=== PATIENT | female | born 1980 | race Caucasian/White ===

== ENCOUNTER 2020-08-25 03:33 | Outpatient (CLI) | payer OTHER, SELFPAY ==
--- NOTE | 2020-08-25 | DI.MAMMO_ITS ---
EXAM: MAMMO SCREENING CLINICAL HISTORY: [id number],SCREENING, BASELINE,FAMILY H/O BREAST CA TECHNIQUE: Mammograms were interpreted according to the usual protocol including computer analysis w [employer] CAD system, tomosynthesis and C-view imaging. COMPARISON: None. Baseline exam. FINDINGS: The breasts are composed of heterogeneously dense fibroglandular densities, Breast Density category C . No suspicious masses or suspicious microcalcifications are seen. No skin thickening or abnormal axillary lymph nodes are seen. There has been no significant change from prior exams. IMPRESSION: BI-RADS Category 1, Negative mammogram. Yearly screening mammography is recommended. Breast Density Category C, heterogeneously Dense. The mammogram demonstrates the patient's breast tissue is dense. Dense breast tissue is very common a nd is not abnormal but dense breast tissue can make it harder to find cancer on a mammogram. Also, de nse breast tissue may increase breast cancer risk. This information about the result of the mammogram report was provided to the patient to raise their awareness. Use this report when you speak with the patient about their risks for breast cancer, which includes their family history. At that time, you may recommend additional screening tests (Ultrasound or MRI) as they might be useful based on their r isk. A negative radiographic report should not delay biopsy if a dominant or clinically suspicious mass is present. Up to ten percent of cancers are not identified on mammography. A negative report may reinforce clinical impression. Adenosis and dense breasts may obscure an underlying neoplasm. False positive reports average 6 to 10%.
== END 2020-08-25 03:53 ==
PROVIDERS: Visit Provider Internal Medicine
DX: Z12.31 Encounter for screening mammogram for malignant neoplasm of breast (principal); Z80.3 Family history of malignant neoplasm of breast
CPT/HCPCS: 77063; 77067

== ENCOUNTER 2020-11-23 06:00 | Emergency (ER) | payer OTHER, SELFPAY ==
[2020-11-23 06:05] VITALS: BP 107/72; PULSE 70; RESP 20; TEMP 36.9; O2SAT 94
--- NOTE | 2020-11-23 06:08 | ED.GENADUL_ITS ---
Discharge Plan Disposition Patient Disposition: HOME Condition: Good Discharge Details Clinical Impression: Arm pain, right Primary Care Provider: None,None ED Provider: Gerry Farah Home Meds and New Rx's Prescriptions: No Action No Known Home Meds RF: 0 Discharge Instructions Additional Instructions: This may be related to carpal tunnel though exam is not completely consistent. Recommend course of nonsteroidal like Aleve on a regular basis for the next 5 to 7 days. Splinting for comfort and follow-up with primary care for reevaluation. Return to ED if you develop chest pain, shortness of breath, neurologic changes. Referrals: Primary Care Provider [Outside] Medical Decision Making Patient presents with complaint of worsening, intermittent, shooting right arm pain. Arm appears normal and is neurovascularly intact with no tenderness. Pain is mostly in the right forearm volar aspect. Tinel's sign negative and Phalen sign equivocal with reproduction of pain but no neurologic symptoms. Still seems possible that this is carpal tunnel related. She has not really not tried anything at this point. Recommend 5 to 7-day course of nonsteroidals and wrist splinting with follow-up with her primary care next. Return to ED if problems. HPI General Mode of arrival: ambulatory . Date/Time Provider Initiated Documentation: 11/23/20 06:07 . Limitations to Documentation: no limitations . Information obtained by: patient and RN notes reviewed . HPI Narrative: Patient presents to ED with right arm pain. She reports that it is intermittent denies any injury. It has been present for 2 weeks but getting worse. She gets shooting pain from her wrist up to her elbow depending on the position her arm is in. She will sometimes have pain all the way up into the upper part of the arm. She denies any discrete numbness or tingling. She denies weakness. She is right-hand dominant. She has tried Aleve once. She has not contacted primary care. She denies chest pain, shortness of breath, neck pain, back pain. Related Data Home Medications Medication Instructions Recorded Confirmed Unknown [No Known Home Meds] 11/23/20 11/23/20 Allergies Allergy/AdvReac Type Severity Reaction Status Date / Time acetaminophen [From Percocet] Allergy Unverified 11/23/20 06:21 oxycodone [From Percocet] Allergy Unverified 11/23/20 06:22 Review of Systems Narrative: As documented in HPI otherwise negative as below. Const: no fever, chills, weakness Resp: no cough, SOB, pleuritic pain CV: no CP, diaphoresis, edema, syncope GI: no abdominal pain, nausea, vomiting, diarrhea Neuro: no headache, numbness, focal weakness, confusion PFSH Medical History No significant past medical history Surgical History H/O laparoscopy Social History Smoking/Tobacco Use Status: Current every day Smoking risk assessment performed?: Yes Alcohol Intake: never Drug use: Never Do you feel safe at home: Yes Do you feel safe in your relationship?: Yes Exam Narrative Exam Narrative: Const: WDWN female in NAD. HEENT: NC/AT. Normal facial exam. Eyes: Normal conjunctiva and sclera. Neck: Supple. Trachea midline. Lungs: Normal respiratory effort. Cor: Good radial pulses. Neuro: A+O x 3. Normal speech, mentation, gait. Cranial nerves II - XII grossly intact. No gross motor or sensory deficit. Ext: No UE tenderness or swelling. Normal radial pulses. Normal strength. Normal sensation. Negative Tinel's. Equivocal Phalen's with pain but no numbness. Skin: Warm and dry without rash.
== END 2020-11-23 06:36 | disposition home or self-care (01) ==
LOC: ER 06:38
PROVIDERS: Emergency Provider Emergency Medicine
DX: M79.601 Pain in right arm (principal)
CPT/HCPCS: 29125; 99283

== ENCOUNTER 2021-12-06 06:26 | Emergency (ER) | payer OTHER, SELFPAY ==
[2021-12-06 06:30] VITALS: BP 122/64; PULSE 87; RESP 14; TEMP 36.6; O2SAT 99
--- NOTE | 2021-12-06 06:30 | DI.RAD_ITS ---
Exam(s) XR ANKLE RT COMPLETE EXAM: XR ANKLE RT COMPLETE CLINICAL HISTORY: ankle sprain, both medial and lateral pain/swellin. TECHNIQUE: 2D digital imaging was performed. COMPARISON: No exams were available for comparison FINDINGS: 3 views There is soft tissue swelling. No evidence of fracture nor widening of the mortise. Talar dome unre markable. No radiopaque foreign body. No osseous tarsal coalition. IMPRESSION: Soft tissue swelling both sides of the ankle. No fractures. No radiographic evidence of osteomyelit is. DATA REPOSITORY: RADIATION DOSE DELIVERED:
--- NOTE | 2021-12-06 06:51 | W.ED.GENAD ---
Discharge Plan Disposition Patient Disposition: HOME Condition: Good Discharge Details Clinical Impression: Right ankle sprain [facility] Home Meds and New Rx's Prescriptions: Continued methocarbamol 500 mg Tablet 500 mg PO TID 0RF topiramate 25 mg Tablet 25 mg PO BID 0RF naproxen 500 mg Tablet 500 - 1,000 mg PO BID [id number] Discharge Instructions Instructions: Ankle Sprain (ED) Additional Instructions: At this time your x-ray shows no evidence of fracture. You have likely sprained some of the ligaments in your ankle causing the pain. Please use the walking boot to help with pain and give additional support for the ankle. Please take Tylenol and Motrin as needed for pain. Please ice your ankle throughout the day, and keep it elevated as often as possible. If you have continued pain over the next 1 to 2 weeks you may require further evaluation by an internet network specialist. If you notice any worsening of your symptoms, or any new symptoms such as vomiting, diarrhea, fever, chills, shortness of breath, chest pain, numbness, weakness, or fainting , please return immediately to the emergency department for reevaluation. Please follow up with your primary care provider as soon as possible for reassessment and reevaluation. As always, it was a pleasure participating in your medical care today. Discharge Data Discharge Date/Time-TO BE ENTERED AT DEPARTURE: 12/06/21 07:07 Medical Decision Making 41-year-old female presents today for evaluation of right ankle pain. Patient states that 1 week ago she slipped on the snow and twisted her right ankle. She does not recall the direction of when. Since then she has been walking on it for the last week. She has been taking NSAIDs and her regular methocarbamol without any significant improvement of her symptoms. She denies any pain in her bowen. She denies any numbness or tingling. No other injuries. She denies weakness. Pain is made worse with ambulation, improved with rest and NSAIDs. No other complaints at this time. No other modifying factors. Physical exam demonstrates minimal swelling over the medial lateral aspects of the right ankle mild tenderness over the medial lateral malleolus. No evidence of significant weakness or laxity. Normal strength for all movements of the foot. Suspect mild ligamentous injury. Fracture less likely. We will get an x-ray out of an abundance of precaution, monitor closely and reassess. HPI General Date/Time Provider Initiated Documentation: 12/06/21 06:27. HPI Narrative: 41-year-old female presents today for evaluation of right ankle pain. Patient states that 1 week ago she slipped on the snow and twisted her right ankle. She does not recall the direction of when. Since then she has been walking on it for the last week. She has been taking NSAIDs and her regular methocarbamol without any significant improvement of her symptoms. She denies any pain in her bowen. She denies any numbness or tingling. No other injuries. She denies weakness. Pain is made worse with ambulation, improved with rest and NSAIDs. No other complaints at this time. No other modifying factors. Related Data Home Medications Medication Instructions Recorded Confirmed methocarbamol 500 mg tablet 500 mg PO TID 12/06/21 12/06/21 naproxen 500 mg tablet 500 - 1,000 mg PO BID PRN 12/06/21 12/06/21 topiramate 25 mg tablet 25 mg PO BID 12/06/21 12/06/21 Allergies Allergy/AdvReac Type Severity Reaction Status Date / Time acetaminophen [From Percocet] Allergy Unverified 12/06/21 06:34 oxycodone [From Percocet] Allergy Unverified 12/06/21 06:34 General Stated Complaint: Orthopedic BERYL: 4 Review of Systems All systems reviewed & are unremarkable except as noted in HPI and below PFSH All Active Problems (Updated 12/06/21 @ 06:54 by Jose Neil DO) Right ankle sprain (Acute) H/O laparoscopy (Chronic) Arm pain, right (Acute) Medical History No significant past medical history Social History Smoking/Tobacco Use Status: Current every day Smoking risk assessment performed?: Yes Alcohol Intake: never Drug use: Never Substance use type: does not use Do you feel safe at home: Yes Do you feel safe in your relationship?: Yes Exam Narrative Exam Narrative: 1.Const: Well-nourished, Well-developed, appearing stated age 2.Eyes: PERRL, no conjunctival injection, and symmetrical lids. 3.ENT: Atraumatic external nose and ears. Moist MM. Neck: Symmetric, trachea midline, No thyromegaly. 4.CVS: +S1/S2, No murmurs or gallops. Peripheral pulses 2+ and equal in all extremities. Brisk capillary refill in all extremities. 5.RESP: Unlabored respiratory effort. Clear to auscultation bilaterally. No wheezes rales or rhonchi 6.GI: Soft, Nontender/Nondistended, No hepatosplenomegaly. No guarding or rebound. 7.MSK: Normocephalic/Atraumatic, Extremities w/o deformity. No cyanosis or clubbing, Normal movement of all extremities Right ankle demonstrates minimal medial and lateral swelling. No redness or warmth. Patient demonstrates good plantar and dorsiflexion, and normal strength for inversion and eversion. However pain seems to be made worse with both inversion and eversion. Sensation intact. Dorsalis pedis and posterior tibial pulse +2 bilaterally. Mild tenderness over both the medial malleolus and lateral malleolus. No tenderness over the metatarsals or phalanges. 8.Skin: Warm, Dry. No rashes or lesions. 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 Sensation grossly intact, no focal neurologic deficits. 10.Psych: (AAO) x3. Appropriate mood and affect Course Vital Signs Vital signs: Vital Signs Temperature 36.6 C 12/06/21 06:30 Pulse 87 12/06/21 06:30 Respiratory Rate 14 12/06/21 06:30 Blood Pressure 122/64 12/06/21 06:30 Pulse Oximetry 99 12/06/21 06:30 Temperature 36.6 C 12/06/21 06:30 Temperature Source Temporal Artery Scan 12/06/21 06:30 Pulse 87 12/06/21 06:30 Respiratory Rate 14 12/06/21 06:30 Respiratory Effort 12/06/21 06:36 Blood Pressure 122/64 12/06/21 06:30 Blood Pressure Position Sitting 12/06/21 06:30 Pulse Oximetry 99 12/06/21 06:30 Oxygen Delivery Method Room Air 12/06/21 06:30 Oxygen Flow Rate 0 12/06/21 06:30 Pain Level 8 12/06/21 06:36
--- NOTE | 2021-12-06 08:13 | DI.VRAD_ITS ---
PROCEDURE INFORMATION: Exam: XR Right Ankle Exam date and time: 12/06/2021 6:33 AM Age: 41 years old Clinical indication: Injury or trauma; Sprain or strain; Ankle; Right; Injury date: 12/06/21; Injury details: Fall on ice TECHNIQUE: Imaging protocol: XR Right ankle. Views: 3 or more views. COMPARISON: No relevant prior studies available. FINDINGS: Bones/joints: No fractures are identified. Alignment is anatomic. The ankle mortise is intact. Joint spaces are maintained. Soft tissues: There is circumferential soft tissue swelling about the ankle, lateral greater than medial. IMPRESSION: No fracture or malalignment in the right ankle. Circumferential soft tissue swelling, lateral greater than medial. Dictated and Authenticated by: Sofya Mason MD. Ordering:JULIANO Garcia MD
== END 2021-12-06 07:07 | disposition home or self-care (01) ==
PROVIDERS: Emergency Provider Student in an Organized Health Care Education/Training Program
DX: S93.491A Sprain of other ligament of right ankle, initial encounter (principal); W00.0XXA Fall on same level due to ice and snow, initial encounter
CPT/HCPCS: 29515; 99283; 73610

== ENCOUNTER 2025-01-24 05:44 | Emergency (ER) | payer OTHER, SELFPAY ==
[2025-01-24 05:50] VITALS: BP 128/90; PULSE 88; RESP 16; TEMP 36.3; O2SAT 96
--- NOTE | 2025-01-24 06:44 | ED.GENADUL_ITS ---
Discharge Plan Disposition Patient Disposition: Home Condition: Good Discharge Details Clinical Impression: Abscess of face Primary Care Provider: [facility] ED Provider: Jose Neil Home Meds and New Rx's Prescriptions: New clindamycin HCl 150 mg capsule 450 mg PO Q6H 7 Days Qty: 84 0RF No Action methocarbamol 500 mg Tablet 500 mg PO TID topiramate 25 mg Tablet 25 mg PO BID naproxen 500 mg Tablet 500 - 1,000 mg PO BID PRN Discharge Instructions Instructions: Abscess Incision and Drainage Additional Instructions: At this time you had an abscess over your left brow that was incised and drained. A small wick was placed in it to help continued the drainage. Thankfully there was no evidence of cellulitis of the septum or the inner parts of your eye. Please take the antibiotic as directed. The wick should fall out in the next few days. Please follow-up closely for wound recheck in the next 48 to 72 hours. You can do that here in the emergency department or at the [place]. A prescription for your antibiotic has been sent to your pharmacy. Please take this as prescribed. If you notice any worsening of your symptoms, or any new symptoms such as pain on the eyelid itself, pain with movement of your eyeball, vomiting, diarrhea, fever, chills, shortness of breath, chest pain, numbness, weakness, or fainting , please return immediately to the emergency department for reevaluation. Please follow up with your primary care provider as soon as possible for reassessment and reevaluation. As always, it was a pleasure participating in your medical care today. Referrals: [facility] [Outside] HPI General Date/Time Provider Initiated Documentation: 01/24/25 05:59 . HPI Narrative: This is a very pleasant 44-year-old female who is a [place] patient, with no significant past medical history otherwise, who presents today for evaluation of swelling over the left eyebrow. Patient states that for the last 2 weeks she has had what she thought was mild ingrown hair, it has been getting bigger and bigger, and over the last few days it has become red tender and mildly painful. She states that she had something like this a year or 2 ago, and it went away on its own. She denies fever or chills. She denies any pain with movement of her eyeball. She denies any pain for the eyelid itself. No other complaints at this time. No other modifying factors. Related Data Home Medications ?Medication ?Instructions ?Recorded ?Confirmed methocarbamol 500 mg tablet 500 mg PO TID 12/06/21 01/24/25 naproxen 500 mg tablet 500 - 1,000 mg PO BID PRN 12/06/21 01/24/25 topiramate 25 mg tablet 25 mg PO BID 12/06/21 01/24/25 clindamycin HCl 150 mg capsule 450 mg (3 x 150 mg) PO Q6H 7 days 01/24/25 #84 caps Previous Rx's ?Medication ?Instructions ?Recorded clindamycin HCl 150 mg capsule 450 mg (3 x 150 mg) PO Q6H 7 days 01/24/25 #84 caps Allergies Allergy/AdvReac Type Severity Reaction Status Date / Time acetaminophen (From Percocet) AdvReac Intermediate Nausea Unverified 01/24/25 05:56 oxycodone (From Percocet) AdvReac Intermediate Nausea Unverified 01/24/25 05:56 General Stated Complaint: Cellulitis BERYL: 4 Exam Narrative Exam Narrative: 1.Const: Well-nourished, Well-developed, appearing stated age 2.Eyes: PERRL, no conjunctival injection. Patient's left eyebrow just inferiorly to it demonstrates a large abscess roughly 2.5 cm x 2.5 cm, it is fluctuant, mildly tender. No active drainage. Inferior to this the lid of the left eye is notably unscathed otherwise. No tenderness at the tarsal plate, no swelling around the eyeball, no proptosis. No inflammation or swelling of the lower lid. When the patient moves the eyeball in every direction there is no evidence of limitation or pain. No visual change. 3.ENT: Atraumatic external nose and ears. Moist MM. Neck: Symmetric, trachea midline, No thyromegaly. 4.CVS: +S1/S2, Peripheral pulses 2+ and equal in all extremities. Brisk capillary refill in all extremities. 5.RESP: Unlabored respiratory effort. Clear to auscultation bilaterally. No wheezes rales or rhonchi 6.GI: Soft, Nontender/Nondistended, No hepatosplenomegaly. No guarding or rebound. 7.MSK: Normocephalic/Atraumatic, Extremities w/o deformity or ttp No cyanosis or clubbing, Normal movement of all extremities 8.Skin: Warm, Dry. No rashes or lesions. 9.Neuro: k[place]o II-XII grossly intact. Sensation grossly intact, no focal neurologic deficits. 10.Psych: (AAO) x3. Appropriate mood and affect Course Vital Signs Vital signs: Vital Signs Temperature 36.3 C L 01/24/25 05:50 Pulse 88 01/24/25 05:50 Respiratory Rate 16 01/24/25 05:50 Blood Pressure 128/90 01/24/25 05:50 Pulse Oximetry 96 01/24/25 05:50 Temperature 36.3 C L 01/24/25 05:50 Temperature Source Tympanic 01/24/25 05:50 Pulse 88 01/24/25 05:50 Respiratory Rate 16 01/24/25 05:50 Blood Pressure 128/90 01/24/25 05:50 Blood Pressure Position Sitting 01/24/25 05:50 Pulse Oximetry 96 01/24/25 05:50 Oxygen Delivery Method Room Air 01/24/25 05:50 Oxygen Flow Rate 0 01/24/25 05:50 Pain Level 6 01/24/25 05:50 Comment left eye 01/24/25 05:50 Procedure Abscess Drainage Date of Procedure: 01/24/25 Time of Procedure: 07:38 Provider that performed the procedure: Jose Neil Standard Time Out Performed: Yes Patient Consented: Verbally Location of Exam: Neck/left side (There is no auto text for the face/eye. Patient has the abscess on the left brow.) Indication: Abscess. Local anesthetic: Lidocaine 1% and with epi, Amount of Local Anesthetic Used (mL): 3. Sterility: Sterile. Procedure Prep: Hand hygiene, Surgical Mask, Sterile Drape/Sheet and Chlohexidine. Technique used, incised with blade and needle aspiration. Amount of fluid expressed(mL): 3. Irrigation: irrigation used. Packing: Plain. Outcome: Sucessful. Medical Decision Making This is a very pleasant 44-year-old female who is a [facility], with no significant past medical history otherwise, who presents today for evaluation of swelling over the left eyebrow. Patient states that for the last 2 weeks she has had what she thought was mild ingrown hair, it has been getting bigger and bigger, and over the last few days it has become red tender and mildly painful. She states that she had something like this a year or 2 ago, and it went away on its own. She denies fever or chills. She denies any pain with movement of her eyeball. She denies any pain for the eyelid itself. No other complaints at this time. No other modifying factors. The patient's left eyebrow just inferiorly to it demonstrates a large abscess roughly 2.5 cm x 2.5 cm, it is fluctuant, mildly tender. No active drainage. Inferior to this the lid of the left eye is notably unscathed otherwise. No tenderness at the tarsal plate, no swelling around the eyeball, no proptosis. No inflammation or swelling of the lower lid. When the patient moves the eyeball in every direction there is no evidence of limitation or pain. No visual change. Symptoms appear consistent with an abscess secondary to the cutaneous skin of the left brow, and there is no clinical evidence to suggest orbital/postseptal cellulitis or for that matter periorbital preseptal cellulitis around the eyeball or lids. Abscess and infection appears to be localized to the inferior aspect of the left brow. Ultrasound confirms evidence of fluid collection. Patient consented to incision and drainage. The area was anesthetized, and then 3 to 4 cc of notable pus was removed after incision with an 18-gauge needle followed by an 11 blade scalpel. Patient tolerated this well. The area was then washed, packed, and bandage. Patient will be started on clindamycin for antibacterial coverage. Concerned that there may be an underlying cystic component (as the patient admits to something similar a year or 2 ago ) that may require surgical intervention in the future. Patient will be discharged home with [facility] I have a long discussion with the patient regarding symptoms that would represent postseptal or septal cellulitis. Patient understands and will monitor for the symptoms. Patient will be given a dose of clindamycin here. Discussed red flags which to return. I have extensively reviewed the treatment plan and discharge instructions with the patient. I have addressed all patient concerns at this time. The patient was made aware of what symptoms to monitor for that would warrant a return to the emergency department. Discussed the plan with the patient, they demonstrate verbal understanding and agreement with our assessment and plan at this time. The documentation in this chart was dictated using Dragon dictation software. Please excuse any dictation errors. Quality:SDOH Health Related Social Needs: 2 No Data to Display PFSH All Active Problems (Updated 01/24/25 @ 06:45 by Jose Neil DO) Abscess of face (Acute) H/O laparoscopy (Chronic) Arm pain, right (Acute) Medical History No significant past medical history Social History Smoking/Tobacco Use Status: Current every day Smoking risk assessment performed?: Yes Alcohol Intake: never Drug use: Never Substance use type: does not use Do you feel safe at home: Yes Do you feel safe in your relationship?: Yes POCUS Exam (ED) Limited Soft Tissue Exam PROVIDER THAT PERFORMED THE STUDY: Jose Neil
[2025-01-24] MEDS: Clindamycin 150 MG CAP, 12 CAPS/BTL 450 MG PO (06:49)
[2025-01-24] MEDS: Lidocaine 1% Multi-Dose W/EPI 1/100,000 50 ML VIAL (06:49)
== END 2025-01-24 06:54 | disposition home or self-care (01) ==
LOC: ER 06:59
PROVIDERS: Emergency Provider Student in an Organized Health Care Education/Training Program
DX: L02.01 Cutaneous abscess of face (principal)
CPT/HCPCS: 10061; 76513; 87070; 87205; J2004

== ENCOUNTER 2025-02-21 06:20 | Emergency (ER) | payer OTHER, SELFPAY ==
[2025-02-21 06:22] VITALS: BP 137/78; PULSE 73; RESP 18; TEMP 36.9; O2SAT 99
--- NOTE | 2025-02-21 06:30 | DI.RAD_ITS ---
Exam(s) XR HIP PELVIS ADULT BL EXAM: XR HIP PELVIS ADULT BL CLINICAL HISTORY: left hip pain after fall. TECHNIQUE: 2D digital imaging was performed of the pelvis and bilateral hips. Three images were obt ained. AP pelvis and lateral views of both hips were obtained. COMPARISON: No exams were available for comparison FINDINGS: BONES: No acute fracture is present. No bony destructive lesion is seen. JOINTS: No dislocation present. SOFT TISSUE: Normal. IMPRESSION: Unremarkable radiographs of bilat hips. Unremarkable radiographs of the pelvis DATA REPOSITORY: RADIATION DOSE DELIVERED:
--- NOTE | 2025-02-21 06:30 | DI.RAD_ITS ---
Exam(s) XR RIBS LT W PA LAT CHEST EXAM: XR RIBS LT W PA LAT CHEST CLINICAL HISTORY: left rib pain after fall TECHNIQUE: 2D digital imaging was performed. Six images are obtained. COMPARISON: No exams were available for comparison FINDINGS: MEDIASTINUM: Normal. HEART: Normal. PULMONARY VASCULATURE: Normal. LUNGS: Clear. PLEURAL SPACE: No pleural effusion or pneumothorax. BONE:Within normal limits for the patient's age. LEFT RIBS: Normal. OTHER FINDINGS:Normal. IMPRESSION: 1. No acute pulmonary findings. 2. Unremarkable left ribs. DATA REPOSITORY: RADIATION DOSE DELIVERED:
[2025-02-21] MEDS: Acetaminophen 500 MG TAB 1000 MG PO (06:45)
[2025-02-21] MEDS: Ibuprofen 800 MG TAB PO (06:46)
[2025-02-21] MEDS: Lidocaine 5% Patch 2 PATCH TP (06:50)
--- NOTE | 2025-02-21 06:50 | ED.GENADUL_ITS ---
Discharge Plan Disposition Patient Disposition: Home Condition: Good Discharge Details Clinical Impression: Rib pain on left side, Hip pain, left Primary Care Provider: Louann,Local ED Provider: Jose Neil Home Meds and New Rx's Prescriptions: New lidocaine [Lidoderm] 5 % adhesive patch,medicated 1 patch Topical Q24H Qty: 15 0RF No Action methocarbamol 500 mg Tablet 500 mg PO TID topiramate 25 mg Tablet 25 mg PO BID naproxen 500 mg Tablet 500 - 1,000 mg PO BID PRN Discharge Instructions Instructions: Rib Fracture or Bruised Rib ED Additional Instructions: At this time there is evidence of a significant bruise/contusion over your ribs. Please apply the Lidoderm patches as prescribed. Please take Tylenol and Motrin as needed for the pain. Please use an incentive spirometer to continue to maintain good lung function to prevent any pneumonia. The literature now suggest that you may use a rib binder to help with the pain if needed. If you notice any worsening of your symptoms, or any new symptoms such as vomiting, diarrhea, fever, chills, shortness of breath, chest pain, numbness, weakness, or fainting , please return immediately to the emergency department for reevaluation. Please follow up with your primary care provider as soon as possible for reassessment and reevaluation. As always, it was a pleasure participating in your medical care today. HPI General Date/Time Provider Initiated Documentation: 02/21/25 06:34 . HPI Narrative: This is a 45-year-old female with no significant past medical history who presents today for evaluation of left rib and hip pain. About 24 hours ago the patient was getting out of the bathtub when she fell and landed on the bathtub wall with her left ribs. She had immediate pain then. She also hit her hips at that time which cause pain as well. She did not hit her head. She did not lose consciousness. She is not on blood thinners. Since the trauma to the left ribs she has had pain in the ribs whenever she breathes or moves, and also mild pain in the left hip. No pain in her spine or head or neck. She is taking NSAIDs without significant improvement. She denies any hemoptysis, numbness, tingling or weakness. No other complaints at this time. No other modifying factors. Related Data Home Medications ?Medication ?Instructions ?Recorded ?Confirmed methocarbamol 500 mg tablet 500 mg PO TID 12/06/21 02/21/25 naproxen 500 mg tablet 500 - 1,000 mg PO BID PRN 12/06/21 02/21/25 topiramate 25 mg tablet 25 mg PO BID 12/06/21 02/21/25 lidocaine 5 % topical patch 1 patch topical Q24H #15 ea 02/21/25 (Lidoderm) Previous Rx's ?Medication ?Instructions ?Recorded lidocaine 5 % topical patch 1 patch topical Q24H #15 ea 02/21/25 (Lidoderm) Allergies Allergy/AdvReac Type Severity Reaction Status Date / Time acetaminophen (From Percocet) AdvReac Intermediate Nausea Unverified 02/21/25 06:27 oxycodone (From Percocet) AdvReac Intermediate Nausea Unverified 02/21/25 06:27 General Stated Complaint: Chest/Rib BERYL: 3 Exam Narrative Exam Narrative: 1.Const: Well-nourished, Well-developed, appearing stated age 2.Eyes: PERRL, no conjunctival injection, and symmetrical lids. 3.ENT: Atraumatic external nose and ears. Moist MM. Neck: Symmetric, trachea midline, No thyromegaly. 4.CVS: +S1/S2, Peripheral pulses 2+ and equal in all extremities. Brisk capillary refill in all extremities. 5.RESP: Unlabored respiratory effort. Clear to auscultation bilaterally. No wheezes rales or rhonchi. 6.GI: Soft, Nontender/Nondistended, No hepatosplenomegaly. No guarding or rebound. 7.MSK: Normocephalic/Atraumatic, Extremities w/o deformity or ttp No cyanosis or clubbing, Normal movement of all extremities. Tenderness over the left ribs on palpation between ribs 5 through 10. No evidence of flail chest, or subcut aneous crepitus. No midline cervical thoracic or lumbar spine tenderness. Mild tenderness over the left hip and PSIS. 8.Skin: Warm, Dry. No rashes or lesions. 9.Neuro: clinical team lead II-XII grossly intact. Sensation grossly intact, no focal neurologic deficits. 10.Psych: (AAO) x3. Appropriate mood and affect Course Vital Signs Vital signs: Vital Signs Temperature 36.9 C 02/21/25 06:22 Pulse 73 02/21/25 06:22 Respiratory Rate 18 02/21/25 06:22 Blood Pressure 137/78 02/21/25 06:22 Pulse Oximetry 99 02/21/25 06:22 Temperature 36.9 C 02/21/25 06:22 Pulse 73 02/21/25 06:22 Respiratory Rate 18 02/21/25 06:22 Respiratory Effort Normal 02/21/25 06:25 Respiratory Depth Normal 02/21/25 06:25 Blood Pressure 137/78 02/21/25 06:22 Pulse Oximetry 99 02/21/25 06:22 Pain Level 7 02/21/25 06:22 Medical Decision Making This is a 45-year-old female with no significant past medical history who presents today for evaluation of left rib and hip pain. About 24 hours ago the patient was getting out of the bathtub when she fell and landed on the bathtub wall with her left ribs. She had immediate pain then. She also hit her hips at that time which cause pain as well. She did not hit her head. She did not lose consciousness. She is not on blood thinners. Since the trauma to the left ribs she has had pain in the ribs whenever she breathes or moves, and also mild pain in the left hip. No pain in her spine or head or neck. She is taking NSAIDs without significant improvement. She denies any hemoptysis, numbness, tingling or weakness. No other complaints at this time. No other modifying factors. Exam demonstrates tenderness over the left ribs and left hip. Concern for contusion, less likely fracture. Will get x-rays, treat with Tylenol and Motrin, and Lidoderm patches. Monitor closely and reassess. Quality:SDOH Health Related Social Needs: No Data to Display PFSH All Active Problems (Updated 02/21/25 @ 07:00 by Jose Neil DO) Hip pain, left (Acute) Rib pain on left side (Acute) Abscess of face (Acute) H/O laparoscopy (Chronic) Arm pain, right (Acute) Medical History No significant past medical history Social History Smoking/Tobacco Use Status: Current every day Smoking risk assessment performed?: Yes Alcohol Intake: never Drug use: Never Substance use type: does not use Do you feel safe at home: Yes Do you feel safe in your relationship?: Yes
[2025-02-21 07:46] VITALS: BP 132/82; PULSE 62; RESP 14; O2SAT 98
--- NOTE | 2025-02-21 08:21 | W.EDPROG ---
Date of service: 02/21/25 Time of Service: 08:00 Medical Decision Making In brief, this is a 45-year-old female patient who fell in the bathtub yesterday, signed out to me awaiting reads of x-ray imaging for left rib and left hip pain. I did review the x-ray imaging, as well as the radiology reports, which note no rib fractures, pneumothorax, nor acute osseous abnormalities of the left hip or pelvis. Exam is most concerning for contusion, and the patient was counseled on multimodal pain management, as well as given a prescription for Lidoderm patches. At this time, the patient has had a full medical evaluation and is safe for discharge to home. They are hemodynamically stable, ambulatory, and tolerating PO. They are understanding of the follow-up plan and return precautions. They left our facility without incident. Vicky Boyce MD Medical Records Medical records reviewed: Yes I reviewed the patient's medical records. Quality:[facility] Health Related Social Needs: No Data to Display Discharge Plan Disposition Patient Disposition: Home Condition: Good Discharge Details Clinical Impression: Rib pain on left side, Hip pain, left Primary Care Provider: Louann,Local ED Provider: Vicky Boyce Home Meds and New Rx's Prescriptions: New lidocaine [Lidoderm] 5 % adhesive patch,medicated 1 patch Topical Q24H Qty: 15 0RF No Action methocarbamol 500 mg Tablet 500 mg PO TID topiramate 25 mg Tablet 25 mg PO BID naproxen 500 mg Tablet 500 - 1,000 mg PO BID PRN Discharge Instructions Instructions: Rib Fracture or Bruised Rib ED Additional Instructions: At this time there is evidence of a significant bruise/contusion over your ribs. Please apply the Lidoderm patches as prescribed. Please take Tylenol and Motrin as needed for the pain. Please use an incentive spirometer to continue to maintain good lung function to prevent any pneumonia. The literature now suggest that you may use a rib binder to help with the pain if needed. If you notice any worsening of your symptoms, or any new symptoms such as vomiting, diarrhea, fever, chills, shortness of breath, chest pain, numbness, weakness, or fainting , please return immediately to the emergency department for reevaluation. Please follow up with your primary care provider as soon as possible for reassessment and reevaluation. As always, it was a pleasure participating in your medical care today. Stand Alone Forms: Work Release
--- NOTE | 2025-02-21 08:22 | DI.VRAD_ITS ---
PROCEDURE INFORMATION: Exam: XR Left Ribs Exam date and time: 02/21/2025 7:18 AM Age: 45 years old Clinical indication: Left-sided; Chest wall pain; Left rib pain after fall TECHNIQUE: Imaging protocol: Radiologic exam of the left ribs. Views: 2 views. COMPARISON: No relevant prior studies available. FINDINGS: Bones/joints: Normal. Soft tissues: Normal. IMPRESSION: No acute findings. PROCEDURE INFORMATION: Exam: XR Chest Exam date and time: 02/21/2025 7:18 AM Age: 45 years old Clinical indication: Left-sided; Chest wall pain; Left rib pain after fall TECHNIQUE: Imaging protocol: Radiologic exam of the chest. Views: 2 views. COMPARISON: No relevant prior studies available. FINDINGS: Lungs: Unremarkable. No consolidation. Pleural spaces: Unremarkable. No pleural effusion. No pneumothorax. Heart/Mediastinum: Unremarkable. No cardiomegaly. Bones/joints: Unremarkable. IMPRESSION: No acute findings. Dictated and Authenticated by: Armida Teresa MD. Orderin Rashaad Garcia MD
--- NOTE | 2025-02-21 08:24 | DI.VRAD_ITS ---
PROCEDURE INFORMATION: Exam: XR Right Hip Exam date and time: 02/21/2025 7:29 AM Age: 45 years old Clinical indication: Hip pain; Bilateral; Fall TECHNIQUE: Imaging protocol: Radiologic exam of the right hip. Views: 2 or 3 views hip with pelvis when performed. COMPARISON: No relevant prior studies available. FINDINGS: Bones/joints: Unremarkable. No acute fracture. Soft tissues: Unremarkable. IMPRESSION: No acute findings. Dictated and Authenticated by: Armida Teresa MD. Orderin Rashaad Garcia MD
[2025-02-21 08:38] VITALS: BP 137/80; PULSE 60; RESP 17; O2SAT 98
== END 2025-02-21 08:39 | disposition home or self-care (01) ==
PROVIDERS: Emergency Provider Emergency Medicine
DX: R07.81 Pleurodynia (principal); M25.552 Pain in left hip; F17.200 Nicotine dependence, unspecified, uncomplicated
CPT/HCPCS: 00123; 73521; 99283; 71046; 71100

== ENCOUNTER 2025-04-22 01:46 | Outpatient (CLI) | payer OTHER, SELFPAY ==
--- NOTE | 2025-04-22 | DI.MAMMO_ITS ---
Exam(s) MAMMO SCREENING EXAM: MAMMO SCREENING CLINICAL HISTORY: [id number], SCREENING. TECHNIQUE: Bilateral full field digital CC and MLO mammographic images were obtained with 3D tomosynthesis and utilizing computer aided detection (CAD). COMPARISON: Prior baseline mammogram of August 2020 was reviewed. FINDINGS: The fibroglandular tissue pattern is again noted be heterogeneously. In the lateral aspect of the right breast there is now an area of architectural distortion, not evident on the prior baseline mammogram 5 years ago. This is suspicious for malignancy. There are no malignant-appearing microcalcification groups in this region. Spot compression views of this region and complete breast ultrasound recommended. In the opposite-left breast there is a well-defined noncalcified nodule located laterally which measures 7 x 6 mm, located 7 cm in from the nipple on the CC view and 4 cm in from the nipple on the MLO view. Spot compression view and ultrasound recommended. No other left breast findings. There are no malignant-appearing microcalcification groups in either breast. There is no significant architectural distortion nor skin thickening-retraction. IMPRESSION: 1. There is a new area of architectural distortion in the lateral aspect of the right breast which is suspicious for malignancy. Spot compression views and complete right breast ultrasound are recommended. 2. There is a well-defined 7 x 6 mm nodule in the left breast which is unchanged from the baseline mammogram of August 2020. Nevertheless. Recommend spot compression view and complete left breast ultrasound BI-RADS Category 0 - Incomplete: Need additional imaging evaluation Breast Density - Category C - The breast are heterogeneously dense, which may obscure small masses. Breast density Category C or D implies that the patient has dense breast tissue. Dense breast tissue can make it harder to find cancer on a mammogram. Dense breast tissue is also associated with an increased risk of breast cancer. This information about the result of the mammogram report was provided to the patient to raise their awareness. Use this report when you speak with the patient about their risks for breast cancer, which includes their family history. At that time, you may recommend additional screening tests (Ultrasound or MRI) as these tests may add significant information. A negative radiographic report should not delay biopsy if a dominant or clinically suspicious mass is present. Up to ten percent of cancers are not identified on mammography. A negative report may reinforce clinical impression. Adenosis and dense breasts may obscure an underlying neoplasm. False positive reports average 6 to 10%. Patient will receive a letter notifying them of these results.
== END 2025-04-22 02:06 ==
PROVIDERS: Visit Provider Nurse Practitioner Family
DX: Z12.31 Encounter for screening mammogram for malignant neoplasm of breast (principal); R92.333 Mammographic heterogeneous density, bilateral breasts
CPT/HCPCS: 77063; 77067

== ENCOUNTER 2025-04-29 00:53 | Outpatient (CLI) | payer OTHER, SELFPAY ==
--- NOTE | 2025-04-29 | DI.US_ITS ---
Exam(s) US BREAST LT COMPLETE US BREAST RT COMPLETE MG MAMMO SCREEN CALL BACK BI EXAM: MG MAMMO SCREEN CALL BACK BI AND THE BILATERAL BREAST ULTRASOUND CLINICAL HISTORY: [id number], F/U [facility]NL MAMMO, RT ARCH. DISTORTION LAT ASPECT, LT NODULE. TECHNIQUE: Bilateral spot mammographic images obtained with 3D tomosynthesisand utilizing computer aided detection (CAD). . Complete BILATERAL breast Ultrasound was also performed, including all 4 quadrants, the retroareolar region, and the ipsilateral axilla. COMPARISON: Prior mammograms were reviewed. This additional imaging was performed due to findings described on the recent screening mammogram of 04/22/2025. FINDINGS: DIAGNOSTIC MAMMOGRAM: Additional mammographic views performed todayreveals the right breast finding at 9 o'clock position to remains suspicious for malignancy. Additional spot compression views of the left breast are equivocal for the presence of a nodule at 3 o'clock position-area of concern on the recent mammogram. We proceeded with ultrasound... COMPLETE BILATERAL BREAST ULTRASOUND: RIGHT BREAST ULTRASOUND: There is scattered benign microcysts at multiple positions in the right breast. However, at the 9 o'clock position there is a finding which corresponds to the suspicious finding on the mammogram, this being a spiculated nodule measuring approximately 6 x 5 mm and exhibiting significant decreased through transmission. This is highly suspicious for malignancy. Scanning of the right axilla reveals no significant adenopathy. LEFT BREAST ULTRASOUND: There are also scattered benign microcysts in the left breast. However, at the 3 o'clock position there is a well-defined slightly lobulated but taller than wider 7 x 5 mm solid nodule. Probable fibroadenoma. Neutral and slightly increased through transmission. No decreased through transmission. This corresponds to the finding at 3 o'clock position on the mammogram. This also requires biopsy. Scanning of the left axilla is negative for significant adenopathy. IMPRESSION: 1. Findings are highly suspicious for malignancy at the 9 o'clock position of the right breast. Ultrasound-guided core biopsy recommended. 2. In the left breast at the 3 o'clock position there is a well-defined lobulated solid 7 x 5 mm nodule which corresponds to the finding on the mammogram. Although this may represent a fibroadenoma I also recommend ultrasound-guided core biopsy of this finding, particularly given the finding in the opposite-right breast and her significant family history. The patient was informed of these findings and recommendations by myself prior to leaving the department today. Findings and recommendations also called by myself to the referring physician at the [facility] (Dr. Ranjeet Rodriguez) following completion of this study on Friday04/29/2025. BI-RADS Category 5 - Highly Suggestive of Malignancy: Biopsy recommended Breast Density - Category C - The breast are heterogeneously dense, which may obscure small masses. Breast density Category C or D implies that the patient has dense breast tissue. Dense breast tissue can make it harder to find cancer on a mammogram. Dense breast tissue is also associated with an increased risk of breast cancer. This information about the result of the mammogram report was provided to the patient to raise their awareness. Use this report when you speak with the patient about their risks for breast cancer, which includes their family history. At that time, you may recommend additional screening tests (Ultrasound or MRI) as these tests may add significant information. A negative radiographic report should not delay biopsy if a dominant or clinically suspicious mass is present. Up to ten percent of cancers are not identified on mammography. A negative report may reinforce clinical impression. Adenosis and dense breasts may obscure an underlying neoplasm. False positive reports average 6 to 10%. Patient will receive a letter notifying them of these results.
== END 2025-04-29 01:13 ==
PROVIDERS: Visit Provider Nurse Practitioner Family
DX: R92.8 Other abnormal and inconclusive findings on diagnostic imaging of breast (principal); Z12.31 Encounter for screening mammogram for malignant neoplasm of breast; R92.333 Mammographic heterogeneous density, bilateral breasts
CPT/HCPCS: 76642; 77063; 77067

== ENCOUNTER 2025-05-16 10:05 | Outpatient (CLI) | payer OTHER, SELFPAY ==
--- NOTE | 2025-05-16 | DI.RAD_ITS ---
Exam(s) XR KNEE LT 3V AP,LAT,FARZANA EXAM: XR KNEE LT 3V AP,LAT,FARZANA CLINICAL HISTORY: MS# [id number] PAIN KNEE M25.569 BILAT KNEE PAIN. TECHNIQUE: 2D digital imaging was performed. COMPARISON: CR XR KNEE RT 3V AP,LAT,FARZANA from 05/16/2025 FINDINGS: Four views No evidence of fracture nor prominent joint effusion. No obvious degenerative changes. Bone density normal. No osseous lesions nor erosions. No osteochondral defects. 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 IMPRESSION: No acute osseous findings. DATA REPOSITORY: RADIATION DOSE DELIVERED:
--- NOTE | 2025-05-16 | DI.RAD_ITS ---
Exam(s) XR KNEE RT 3V AP,LAT,FARZANA EXAM: XR KNEE RT 3V AP,LAT,FARZANA CLINICAL HISTORY: MS# [id number] PAIN KNEE [id number] BILAT KNEE PAIN. TECHNIQUE: 2D digital imaging was performed. COMPARISON: No exams were available for comparison FINDINGS: 3 views No evidence of fracture. There is a small amount of increased fluid noted in the suprapatellar bursa. No joint space narrowing. No osteophytes. No loose intra-articular bodies. Bone density normal. Incidentally noted is a broad-based osteo chondroma on the medial aspect of the proximal diaphysis of the fibula. IMPRESSION: No acute osseous findings. Small joint effusion which may signify internal derangement. 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 Similar but smaller finding is seen on the opposite-left side. DATA REPOSITORY: RADIATION DOSE DELIVERED:
== END 2025-05-16 10:25 ==
PROVIDERS: Visit Provider Nurse Practitioner Family
DX: M25.561 Pain in right knee (principal); M25.562 Pain in left knee
CPT/HCPCS: 73562